=== PATIENT | male | born 1960 | race Caucasian/White ===

== ENCOUNTER 2023-05-06 20:26 | Emergency (ER) | payer OTHER ==
[2023-05-06] MEDS ORDERED: Lidocaine 1% 5 ML VIAL ONE (20:49)
[2023-05-06] MEDS ORDERED: Cephalexin 500 MG Cap PO ONE (20:56)
[2023-05-06] MEDS ORDERED: Diphtheria,Pertussis(Acell),Tetanus Vaccine 0.5 ML Syringe IM ONE (20:56)
== END 2023-05-06 21:24 | disposition home or self-care (01) ==
LOC: DL.ED 20:26
DX: S60.352A Superficial foreign body of left thumb, initial encounter (principal); Z23 Encounter for immunization; W45.8XXA Other foreign body or object entering through skin, initial encounter
CPT/HCPCS: 90471; 90715; 99283-25; A9270-GY; J3490

== ENCOUNTER 2025-07-27 15:33 | Emergency (ER) | payer OTHER ==
[2025-07-27] MEDS: Lidocaine 1% with EPINEPHrine 1:100,000 20 ML MDV INJECT ONE (15:49)
== END 2025-07-27 16:10 | disposition home or self-care (01) ==
LOC: DL.ED 15:33
DX: S60.552A Superficial foreign body of left hand, initial encounter (principal); W45.8XXA Other foreign body or object entering through skin, initial encounter
CPT/HCPCS: 99283; J2004